=== PATIENT | female | born 1935 | race Caucasian/White ===

== ENCOUNTER 2018-02-13 23:27 | Inpatient (IN) ==
[2018-02-13] MEDS ORDERED: Sodium Chlor 0.9% Inj 500 ML IV.SIG SCH (23:45)
[2018-02-13] MEDS ORDERED: Labetalol HCl Inj 100 MG/20 ML Vial IV.PUSH ONE (23:58)
[2018-02-14 00:55] LABS: Baso % (Auto) 0.2 % (0.0-2.0); Eos # (Auto) 0.2 th/mm3 (0.0-0.4); Eos % (Auto) 1.1 % (0.0-4.0); Hematocrit 40.4 % (35.0-46.0); Hemoglobin 13.9 gm/dL (11.6-15.3); Lymph # (Auto) 1.8 th/mm3 (1.0-4.8); Lymph % (Auto) 13.1 % (9.0-44.0); Mean Corpuscular HGB Conc 34.4 % (32.0-36.0); Mean Corpuscular Hemoglobin 31.9 pg (27.0-34.0); Mean Corpuscular Volume 92.9 fL (80.0-100.0); Mean Platelet Volume 10.1 fL (7.0-11.0); Mono # (Auto) 1.2 th/mm3 (0.0-0.9); Mono % (Auto) 8.6 % (0.0-8.0); Neut # (Auto) 10.8 th/mm3 (1.8-7.7); Platelet Count 237 th/mm3 (150-450); Red Blood Count 4.35 mil/mm3 (4.00-5.30); Red Cell Distribution Width 13.4 % (11.6-17.2); White Blood Count 14.1 th/mm3 (4.0-11.0)
[2018-02-14 01:05] LABS: Albumin 3.6 g/dL (3.4-5.0); Anion Gap 10 meq/L (5-15); Aspartate Aminotransferase 15 U/L (15-37); Blood Urea Nitrogen 18 mg/dL (7-18); Calcium 8.9 mg/dL (8.5-10.1); Carbon Dioxide 23.9 meq/L (21.0-32.0); Chloride 105 meq/L (98-107); Glomerular Filtration Rate 34 mL/min (>89); Glucose,Random 191 mg/dL (74-106); Potassium 3.7 meq/L (3.5-5.1); Sodium 139 meq/L (136-145)
[2018-02-14 01:06] LABS: Alanine Aminotransferase 18 U/L (10-53)
[2018-02-14 01:16] LABS: Alkaline Phosphatase 85 U/L (45-117); Total Protein 7.6 g/dL (6.4-8.2)
[2018-02-14 02:47] LABS: Bilirubin,Urine Negative (Negative); Clarity,Urine Hazy (Clear); Color,Urine Yellow (Yellw/Straw); Glucose,Urine (UA) Negative (Negative); Hyaline Casts,Urine 4 /lpf (0-3); Leukocyte Esterase,Urine Negative (Negative); Nitrite,Urine Negative (Negative); Specific Gravity,Urine 1.012 (1.002-1.035); Squamous Epithelial Cell,Urine 1 /hpf (0-5)
[2018-02-14] MEDS ORDERED: Metoprolol Tartrate 50 MG Tablet PO ONE (02:50)
--- NOTE | 2018-02-14 03:11 | ED ---
HPI General Chief Complaint: Psychiatric Symptoms Stated Complaint: Psych Eval-OBPD Time Seen by Provider: 02/13/18 23:49 Source: EMS Mode of arrival: EMS Limitations: other (Dementia) History of Present Illness HPI Narrative: Came to the emergency room brought by EMS under Antony act. Her daughter called 911 since patient wanted to go to the house across the street to them saying that she wants to go to [place]. Patient is from [facility] and has come to live with her daughter 1 week ago. She does have history of dementia. Because of her behavior daughter called 911. Patient was hypotensive and tachycardic upon arrival but was trying to answer questions. She does have history of hypertension but could not tell me the name of the medication she is on. She did not appear to be in any distress. Patient was complaining of some lower back pain but said she had surgery there many years ago for lumbar fusion and does get pain off and on on that location. No history of alcohol consumption. Onset (ago): hour(s) Related Data Previous Rx's Medication Instructions Recorded metoprolol tartrate 12.5 mg PO BID #30 tab 02/16/18 amlodipine [Norvasc] 5 mg PO DAILY #30 tab 02/17/18 Allergies Allergy/AdvReac Type Severity Reaction Status Date / Time No Known Allergies Allergy Unverified 02/13/18 23:58 Review of Systems ROS Unobtainable ROS Unobtainable: unobtainable due to mental condition (Dementia) [facility] Medical History Medical History Medical history unknown (Acute) Surgical history unknown (Acute) Social History Social History Substance History: No History of Abuse Second Hand Smoke Exposure: No Smoking Status: Never smoker How Often Do You Have a Drink Containing Alcohol: Monthly or less Recent Travel in [facility] within the Last 8 Weeks: No Recent Out of Country Travel within the Last 8 Weeks: No Immunization History Tetanus Immunization: Unable to Assess Exam Narrative Exam Narrative: GENERAL: Awake, confused, elderly, dementia, no obvious distress SKIN: Focused skin assessment warm/dry. HEAD: Atraumatic. Normocephalic. EYES: Pupils equal and round. No scleral icterus. No injection or drainage. ENT: No nasal bleeding or discharge. Mucous membranes pink and moist. NECK: Trachea midline. No JVD. CARDIOVASCULAR: Regular rate and rhythm. No murmur appreciated. RESPIRATORY: No accessory muscle use. Clear to auscultation. Breath sounds equal bilaterally. GASTROINTESTINAL: Abdomen soft, non-tender, nondistended. Hepatic and splenic margins not palpable. MUSCULOSKELETAL: No obvious deformities. No clubbing. No cyanosis. No edema. NEUROLOGICAL: Awake and confused. Dementia. No obvious cranial nerve deficits. Motor grossly within normal limits. Normal speech. PSYCHIATRIC: Appropriate mood and affect; insight and judgment normal. Course Initial Documented Vital Signs Temperature 98.5 F 02/13/18 23:41 Pulse Rate 123 H 02/13/18 23:41 Respiratory Rate 17 02/13/18 23:41 Blood Pressure 240/108 H 02/13/18 23:41 Pulse Oximetry 95 02/13/18 23:41 Last Documented Vital Signs Temperature 98.1 F 02/17/18 05:52 Pulse Rate 79 02/17/18 05:52 Respiratory Rate 18 02/17/18 05:52 Blood Pressure 146/70 H 02/17/18 11:44 Pulse Oximetry 95 02/17/18 05:52 Medical Decision Making MDM Narrative Medical decision making narrative: 3 AM patient has been medically cleared based on the psych labs that was evaluated by me. White blood cell count is slightly elevated but differential appears to be within acceptable limits. I do not have an explanation for the elevated white blood cell count but the patient has been afebrile. She was given 20 mg of Lopressor which brought the heart rate down and the blood pressure currently was 170s. I have given her p.o. Lopressor as well. She is medically cleared and would require psych screen. Medical Screen Exam Complete: Yes Emergency Medical Condition: Yes Lab Data Result diagrams: 02/17/18 10:03 02/17/18 10:03 Lab Results 02/14/18 02/14/18 02/14/18 Range/Units 00:45 00:45 02:28 WBC 14.1 H (4.0-11.0) th/mm3 RBC 4.35 (4.00-5.30) mil/mm3 Hgb 13.9 (11.6-15.3) gm/dL Hct 40.4 (35.0-46.0) % MCV 92.9 (80.0-100.0) fL MCH 31.9 (27.0-34.0) pg MCHC 34.4 (32.0-36.0) % RDW 13.4 (11.6-17.2) % Plt Count 237 (150-450) th/mm3 MPV 10.1 (7.0-11.0) fL Neut % (Auto) 77.0 H (16.0-70.0) % Lymph % (Auto) 13.1 (9.0-44.0) % [place] % (Auto) 8.6 H (0.0-8.0) % Eos % (Auto) 1.1 (0.0-4.0) % Baso % (Auto) 0.2 (0.0-2.0) % Neut # (Auto) 10.8 H (1.8-7.7) th/mm3 Lymph # (Auto) 1.8 (1.0-4.8) th/mm3 [place] # (Auto) 1.2 H (0.0-0.9) th/mm3 Eos # (Auto) 0.2 (0.0-0.4) th/mm3 Baso # (Auto) 0.0 (0.0-0.2) th/mm3 WBC Differential . Differential Comment Auto diff final Sodium 139 (136-145) meq/L Potassium 3.7 (3.5-5.1) meq/L Chloride 105 (98-107) meq/L Carbon Dioxide 23.9 (21.0-32.0) meq/L Anion Gap 10 (5-15) meq/L BUN 18 (7-18) mg/dL Creatinine 1.45 H (0.50-1.00) mg/dL Estimated GFR 34 L (>89) mL/min Random Glucose 191 H (74-106) mg/dL Hemoglobin A1c (4.3-6.0) % Calcium 8.9 (8.5-10.1) mg/dL Total Bilirubin 0.3 (0.2-1.0) mg/dL AST 15 (15-37) U/L ALT 18 (10-53) U/L Alkaline Phosphatase 85 (45-117) U/L Troponin I Less than 0.02 L (0.02-0.05) ng/mL Total Protein 7.6 (6.4-8.2) g/dL Albumin 3.6 (3.4-5.0) g/dL Triglycerides (42-150) mg/dL Cholesterol (120-200) mg/dL LDL Cholesterol, Calc (0-99) mg/dL HDL Cholesterol (40.0-60.0) mg/dL Cholesterol/HDL Ratio Ratio TSH 2.720 (0.358-3.740) uIU/mL Urine Color Yellow (Yellw/Straw) Urine Clarity Hazy H (Clear) Urine pH 5.0 (5.0-8.5) Ur Specific [place] 1.012 (1.002-1.035) Urine Protein Negative (Neg-Trace) mg/dL Urine Glucose (UA) Negative (Negative) mg/dL Urine Ketones Negative (Negative) mg/dL Urine Occult Blood Negative (Negative) Urine Nitrate Negative (Negative) Urine Bilirubin Negative (Negative) Urine Urobilinogen Less than 2 (Less than 2) mg/dL Ur Leukocyte Esterase Negative (Negative) Ur Squamous Epith Cells 1 (0-5) /hpf Hyaline Casts 4 (0-3) /lpf Granular Casts 4 (None) /lpf Micro UA Comment Culture not ind Ur Microscopic Review Not Reportable Urine Culture Comments Culture not ind Serum Alcohol Less than 3 (0-5) mg/dL 02/15/18 02/15/18 02/17/18 Range/Units 06:19 06:19 10:03 WBC 6.2 (4.0-11.0) th/mm3 RBC 3.86 L (4.00-5.30) mil/mm3 Hgb 12.1 (11.6-15.3) gm/dL Hct 35.5 (35.0-46.0) % MCV 92.1 (80.0-100.0) fL MCH 31.5 (27.0-34.0) pg MCHC 34.2 (32.0-36.0) % RDW 13.5 (11.6-17.2) % Plt Count 240 (150-450) th/mm3 MPV 10.0 (7.0-11.0) fL Neut % (Auto) (16.0-70.0) % Lymph % (Auto) (9.0-44.0) % [place] % (Auto) (0.0-8.0) % Eos % (Auto) (0.0-4.0) % Baso % (Auto) (0.0-2.0) % Neut # (Auto) (1.8-7.7) th/mm3 Lymph # (Auto) (1.0-4.8) th/mm3 [place] # (Auto) (0.0-0.9) th/mm3 Eos # (Auto) (0.0-0.4) th/mm3 Baso # (Auto) (0.0-0.2) th/mm3 WBC Differential Differential Comment Sodium 142 (136-145) meq/L Potassium 3.8 (3.5-5.1) meq/L Chloride 109 H (98-107) meq/L Carbon Dioxide 25.7 (21.0-32.0) meq/L Anion Gap 7 (5-15) meq/L BUN 14 (7-18) mg/dL Creatinine 0.85 (0.50-1.00) mg/dL Estimated GFR 64 L (>89) mL/min Random Glucose 103 (74-106) mg/dL Hemoglobin A1c 5.6 (4.3-6.0) % Calcium 8.5 (8.5-10.1) mg/dL Total Bilirubin (0.2-1.0) mg/dL AST (15-37) U/L ALT (10-53) U/L Alkaline Phosphatase (45-117) U/L Troponin I (0.02-0.05) ng/mL Total Protein (6.4-8.2) g/dL Albumin (3.4-5.0) g/dL Triglycerides 102 (42-150) mg/dL Cholesterol 132 (120-200) mg/dL LDL Cholesterol, Calc 76 (0-99) mg/dL HDL Cholesterol 35.7 L (40.0-60.0) mg/dL Cholesterol/HDL Ratio 3.69 Ratio TSH (0.358-3.740) uIU/mL Urine Color (Yellw/Straw) Urine Clarity (Clear) Urine pH (5.0-8.5) Ur Specific [place] (1.002-1.035) Urine Protein (Neg-Trace) mg/dL Urine Glucose (UA) (Negative) mg/dL Urine Ketones (Negative) mg/dL Urine Occult Blood (Negative) Urine Nitrate (Negative) Urine Bilirubin (Negative) Urine Urobilinogen (Less than 2) mg/dL Ur Leukocyte Esterase (Negative) Ur Squamous Epith Cells (0-5) /hpf Hyaline Casts (0-3) /lpf Granular Casts (None) /lpf Micro UA Comment Ur Microscopic Review Urine Culture Comments Serum Alcohol (0-5) mg/dL 02/17/18 Range/Units 10:03 WBC (4.0-11.0) th/mm3 RBC (4.00-5.30) mil/mm3 Hgb (11.6-15.3) gm/dL Hct (35.0-46.0) % MCV (80.0-100.0) fL MCH (27.0-34.0) pg MCHC (32.0-36.0) % RDW (11.6-17.2) % Plt Count (150-450) th/mm3 MPV (7.0-11.0) fL Neut % (Auto) (16.0-70.0) % Lymph % (Auto) (9.0-44.0) % [place] % (Auto) (0.0-8.0) % Eos % (Auto) (0.0-4.0) % Baso % (Auto) (0.0-2.0) % Neut # (Auto) (1.8-7.7) th/mm3 Lymph # (Auto) (1.0-4.8) th/mm3 [place] # (Auto) (0.0-0.9) th/mm3 Eos # (Auto) (0.0-0.4) th/mm3 Baso # (Auto) (0.0-0.2) th/mm3 WBC Differential Differential Comment Sodium 143 (136-145) meq/L Potassium 3.8 (3.5-5.1) meq/L Chloride 108 H (98-107) meq/L Carbon Dioxide 27.1 (21.0-32.0) meq/L Anion Gap 8 (5-15) meq/L BUN 17 (7-18) mg/dL Creatinine 0.99 (0.50-1.00) mg/dL Estimated GFR 53 L (>89) mL/min Random Glucose 113 H (74-106) mg/dL Hemoglobin A1c (4.3-6.0) % Calcium 8.6 (8.5-10.1) mg/dL Total Bilirubin (0.2-1.0) mg/dL AST (15-37) U/L ALT (10-53) U/L Alkaline Phosphatase (45-117) U/L Troponin I (0.02-0.05) ng/mL Total Protein (6.4-8.2) g/dL Albumin (3.4-5.0) g/dL Triglycerides (42-150) mg/dL Cholesterol (120-200) mg/dL LDL Cholesterol, Calc (0-99) mg/dL HDL Cholesterol (40.0-60.0) mg/dL Cholesterol/HDL Ratio Ratio TSH (0.358-3.740) uIU/mL Urine Color (Yellw/Straw) Urine Clarity (Clear) Urine pH (5.0-8.5) Ur Specific [place] (1.002-1.035) Urine Protein (Neg-Trace) mg/dL Urine Glucose (UA) (Negative) mg/dL Urine Ketones (Negative) mg/dL Urine Occult Blood (Negative) Urine Nitrate (Negative) Urine Bilirubin (Negative) Urine Urobilinogen (Less than 2) mg/dL Ur Leukocyte Esterase (Negative) Ur Squamous Epith Cells (0-5) /hpf Hyaline Casts (0-3) /lpf Granular Casts (None) /lpf Micro UA Comment Ur Microscopic Review Urine Culture Comments Serum Alcohol (0-5) mg/dL ECG Data Attestation: I personally reviewed and interpreted this ECG as follows: Interpretation: Twelve-lead EKG is reviewed by me. Normal sinus rhythm, normal axis, tachycardia hernia, nonspecific ST-T wave changes. Discharge Plan Discharge Disposition Patient Disposition: 01 Discharge Home Discharge Condition Condition: Fair Discharge Order Discharge Orders: Discharge Order (Routine); Ordered 02/16/18 Ordered By: Benjamin Malloy Discharge Details Anticipated Discharge Date: 02/17/18 Physicians Team ED Provider: Glenn Lemons Primary Care Provider: UNKNOWN, Attending Provider: Benjamin Malloy Other Providers: Utilizer,[facility] ; Shanice Penn Discharge Interventions Interventions: ED Discharge Assessment Last Done: 02/14/18 13:36 Vital Signs Last Done: 02/14/18 09:12 Status ED Status: Left Department Discharge Information Discharge Date/Time: 02/14/18 13:37
[2018-02-14] MEDS ORDERED: Haloperidol Inj 5 MG/ML Ampul IM ONE (06:41)
[2018-02-14] MEDS ORDERED: Aluminum/Magnesium/Simethacone Susp 30 ML UDC PO PRN (12:26)
[2018-02-14] MEDS ORDERED: Bisacodyl 10 MG Supp RECTAL PRN (12:26)
--- NOTE | 2018-02-14 13:57 | ECG ---
Date Performed: 02/13/2018 Time Performed: 23:48:33 PTAGE: 83 years EKG: SINUS TACHYCARDIA LEFT VENTRICULAR HYPERTROPHY AND ST-T CHANGE ABNORMAL ECG NO PREVIOUS TRACING DOCTOR: Rui Ramon Interpretating Date/Time 02/14/2018 13:56:38
[2018-02-14] MEDS: Senna/Docusate Sodium 8.6/50 MG Tablet PO SCH (21:16)
[2018-02-15 07:47] LABS: Calcium 8.5 mg/dL (8.5-10.1); Carbon Dioxide 25.7 meq/L (21.0-32.0); Potassium 3.8 meq/L (3.5-5.1)
[2018-02-15 07:54] LABS: Chol/HDL Ratio 3.69 Ratio; HDL Cholesterol 35.7 mg/dL (40.0-60.0)
[2018-02-15] MEDS: Senna/Docusate Sodium 8.6/50 MG Tablet PO SCH ×2 (09:56→21:25)
[2018-02-15] MEDS ORDERED: Aluminum/Magnesium/Simethacone Susp 30 ML UDC PO PRN (09:58)
[2018-02-15] MEDS ORDERED: Acetaminophen 325 MG Tablet PO PRN (09:58)
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
[2018-02-15 17:34] LABS: Hemoglobin A1c 5.6 % (4.3-6.0)
--- NOTE | 2018-02-16 07:39 | P.CON ---
[facility] of Present Illness [facility] Consult date: 02/16/18 Requesting Physician: Benjamin Malloy Reason for Consult: Hypertension Primary Care Provider: UNKNOWN Chief Complaint: confusion History of Present Illness: patient is [facility] 83-year-old female who is admitted under psychiatry services apparently for confusion. History mainly obtained from review of records. Patient is pleasant awake alert but pleasantly confused. She states that she is 43 years old and she states that she drove down from [place] to live down here by herself. She states she has history of hypertension recently diagnosed. She does remember that she did have back surgery spinal fusion "sometime ago. When asked how she why she came years states "I just came here to get warm". On review of records apparently she was Antony acted by [employer] on February 13 with history of dementia[facility]. Review BP readings past few days therefore elevated readings of 193/76, 217/97, occasional tchycardia previously. She did get a one-time dose of clonidine. Currently blood pressure is 154/72 heart rate of 76. Patient denies any chest pain shortness of breath palpitations. There are no home meds listed. Currently patient is on Atarax 50 mg every 6, lactulose as needed senna twice daily, Review of Systems Patient denies any fever chest pain or shortness of breath, Denies any difficulty swallowing Denies any nausea vomiting diarrhea No leg swelling PMFSH - History History Provided By: Patient, Family Member - Medical / Surgical Hx Neg / Unobtainable Medical Problems Denied: Yes - Medical History Medical History: Medical History (Last Reviewed 02/15/18 @ 11:15 by Benjamin Malloy MD) Surgical history unknown (Acute) Medical history unknown - Tobacco History Second Hand Smoke Exposure: No Smoking Status: Never smoker - Alcohol History How Often Do You Have a Drink Containing Alcohol: Monthly or less - Substance Use History Substance History: No History of Abuse - Travel History Recent Travel in the [facility] Within the Last 8 Weeks: No Recent Travel Out of the Country Within the Last 8 Weeks: No - Immunization History Tetanus Immunization: Unsure Medications and Allergies Active Medications: Active Medications Acetaminophen (Tylenol) 650 mg PO Q4H PRN PRN Reason: Pain 1-5 or Temp >101F Al Hydrox/Mg Hydrox/Simethicone (Mag-Al Plus Susp Liq) 30 ml PO Q6H PRN PRN Reason: DYSPEPSIA Al Hydroxide/Mg Hydroxide (Milk Of Magnesia Liq) 30 ml PO Q12H PRN PRN Reason: Mild Constipation Bisacodyl (Dulcolax Supp) 10 mg RECTAL DAILY PRN PRN Reason: SEVERE CONSITIPATION Clonidine HCl (Catapres) 0.1 mg PO Q8H PRN PRN Reason: SBP>180 OR DBP> 100 Diphenhydramine HCl (Benadryl) 50 mg PO HS PRN PRN Reason: INSOMNIA Hydroxyzine HCl (Atarax) 50 mg PO Q6H PRN PRN Reason: ANXIETY Sodium Chloride (Ns Inj) 500 mls @ 0 mls/hr IV.SIG BOLUS PAT Last Infusion: 02/14/18 01:46 Dose: Infused Lactulose (Lactulose Liq) 30 ml PO DAILY PRN PRN Reason: SEVERE CONSITIPATION Senna/Docusate Sodium (Richa-Colace) 1 tab PO BID PAT Last Admin: 02/15/18 21:25 Dose: Not Given Sennosides (Senokot) 17.2 mg PO Q12H PRN PRN Reason: Moderate Constipation Allergies Allergy/AdvReac Type Severity Reaction Status Date / Time No Known Allergies Allergy Unverified 02/13/18 23:58 Physical Exam Vital signs: Vital Signs 02/15/18 18:30 02/15/18 21:15 02/16/18 05:07 Temperature 98.1 F 97.6 F Pulse Rate 109 H 76 Respiratory Rate 16 15 Blood Pressure 193/76 H 217/97 H 154/72 H Pulse Oximetry 96 Intake & Output 02/15/18 02/16/18 02/16/18 18:59 06:59 18:59 Other: Date of Last Bowel Movement 02/14/18 02/14/18 Narrative: Patient is awake alert oriented to person, thinks she is in [place], speech clear, oriented to person pleasant and cooperative Anicteric sclerae pupils equal Neck supple no nuchal rigidity no bruit Chest lungs clear breath sounds no rales no wheezes Regular rhythm no murmur Abdomen soft nontender good bowel sounds Extremities no edema good peripheral pulses Neurologic exam awake alert oriented to person only pleasantly confused but interactive speech spontaneous Cranial nerves grossly intact Motor 5/5 in all extremities Grossly no sensory deficit Gait steady Assessment and Plan - Plan 83-year-old female admitted for Dementia. - Pleasantly confused on exam. Psychiatry ff Hypertension. SBP readings ranges from 170s- 205 with DBP in the 100s Patient states that she was recently told that she has high blood pressure weeks ago but I do not know how reliable is this patient denies any chest pain or shortness of breath, not on any BP meds at home Twelve-lead EKG shows sinus rhythm no acute ST-T wave changes was tachycardic on admission but now regular rate and rhythm. start on low dose BB Lopressor 12.5 mg po bid - adjust as BP is being monitored Acute kidney injury on initial labs- - pre renal likelly from dehydration poor po from dementia. Resolved Encourage po intake and fluids- - placed nursing orders Monitor labs periodically History of lumbar fusion back surgery. in No acute pain. Leukocytosis on initial labs- no fever, UA negative, lungs clear. monitor. HYperglycemia - on initial labs-likely reactive. . repeat BS good. A1C normal Up and ambulating Code status- NO code Thank you for this consult will follow patient in-house with you
[2018-02-16] MEDS: Senna/Docusate Sodium 8.6/50 MG Tablet PO SCH ×2 (09:04→21:10)
[2018-02-16] MEDS: Metoprolol Tartrate 25 MG Tablet PO SCH ×2 (09:05→21:09)
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
[2018-02-16 18:46] VITALS: RESP 18; O2SAT 95
[2018-02-17 05:58] VITALS: PULSE 79; TEMP 98.1
--- NOTE | 2018-02-17 08:10 | P.PN ---
Subjective Interval history: Follow-up visit for HTN. Nurse does not report any acute events overnight or this morning, patient will be discharged today around noon. Patient is seen and examined sitting up in bed in no acute distress. Denies any fevers, chills, N/V/ D, cough, SOB, headache or dizziness. Physical Exam Vital signs: Vital Signs 02/16/18 18:45 02/17/18 02:48 02/17/18 05:52 Temperature 97.6 F 98.1 F Pulse Rate 100 H 79 Respiratory Rate 18 Blood Pressure 177/76 H 198/89 H 163/78 H Pulse Oximetry 95 95 Intake & Output 02/16/18 02/17/18 02/17/18 18:59 06:59 18:59 Intake Total 360 / 360 240 / 240 Balance 360 / 360 240 / 240 Intake: Oral 360 / 360 240 / 240 Other: # Voids 1 Date of Last Bowel Movement 02/15/18 Narrative: GENERAL: Well nourished, well developed elderly female in no acute distress. SKIN: Warm and dry. HEAD: Atraumatic. Normocephalic. EYES: Pupils equal and round. No scleral icterus. No injection or drainage. ENT: No nasal bleeding or discharge. MMM and pink. NECK: Trachea midline. CARDIOVASCULAR: Regular rate and rhythm. RESPIRATORY: No accessory muscle use. Clear to auscultation. Breath sounds equal bilaterally. GASTROINTESTINAL: Abdomen soft, non-tender, nondistended. +BS. MUSCULOSKELETAL: Extremities without clubbing, cyanosis, or edema. No obvious deformities. NEUROLOGICAL: Awake and alert. No obvious cranial nerve deficits. Motor grossly within normal limits. Normal speech. PSYCHIATRIC: Appropriate mood and affect; insight and judgment normal. Results - Labs CBC & Chem 7: 02/17/18 10:03 02/17/18 10:03 Assessment and Plan - Plan Dementia - Appears to be stable, treatment per psych HTN, chronic 240/108 on admission EKG shows sinus rhythm no acute ST-T wa - BP this a.m still on the high side 182/90, added Norvasc 5mg daily. Recheck BP later in the afternoon 146/70 - Rx for both medications printed. Follow-up with PCP for ongoing monitoring and adjustments. ADY, likely due do mild dehydration - BMP this a.m stable Leukocytosis, likely stress related - Recheck CBC this a.m. stable Medically stable for discharge, will need to follow-up with her PCP. Discussed Condition With: Patient and nurse.
[2018-02-17] MEDS: Metoprolol Tartrate 25 MG Tablet PO SCH (08:44)
[2018-02-17] MEDS: Senna/Docusate Sodium 8.6/50 MG Tablet PO SCH (08:45)
--- NOTE | 2018-02-17 08:45 | P.TTN ---
- Patient Problems Problems: 1. Discharge planning 2. Medication compliance 3. Knowledge deficit 4. Lack of coping skills - Progress Toward Goals Provider Present: Dr. Leno Malloy Provider Input: 02/16/2018; patient med adjustment; family meeting schedule to discuss placement and appropriate dc Nurse(s) Present: RN Nurse Input: 02/16/2018; per RN patient is pleasant no behavior compliant with required prompting and encouragement with daily life needs Psychiatric Counselors Present: Stephanie Dueñas [facility] Psychiatric Therapist Input: 02/16/2018; Counselor will prepare dc package to [facility] per family request, to ensure appropriate dc planning. Patient will be seen by [facility] medical providers Group Spec/RT/OT/UGALDE Present: Magnus Do OT Group Spec/RT/OT/UGALDE Input: 02/16/18; per OT patient has been unable to praticipate with activities - Documentation Teaching Recipient: Patient
[2018-02-17] MEDS ORDERED: amLODIPine 5 MG Tablet PO SCH (09:00)
[2018-02-17 11:08] LABS: Hematocrit 35.5 % (35.0-46.0); Hemoglobin 12.1 gm/dL (11.6-15.3); Mean Corpuscular HGB Conc 34.2 % (32.0-36.0); Mean Corpuscular Hemoglobin 31.5 pg (27.0-34.0); Mean Corpuscular Volume 92.1 fL (80.0-100.0); Platelet Count 240 th/mm3 (150-450); Red Blood Count 3.86 mil/mm3 (4.00-5.30); Red Cell Distribution Width 13.5 % (11.6-17.2); White Blood Count 6.2 th/mm3 (4.0-11.0)
--- NOTE | 2018-02-17 11:18 | P.PNPSY ---
Subjective Chief Complaint: Dementia, HTN Remarks: Ms. Bhandari is found awake, lying in bed, in her room, dressed in hospital gown/pajamas. She is pleasant, alert, cooperative, Oriented x4, and describes her mood as "good". She is still worried about her dog "Clarice". Immediate Memory appears impaired as she forgot who I was when I came back to room 10min after initial visit. Denies SI/HI, auditory/visual/tactile hallucinations, delusions, IOR. She is set to be discharged today but has not yet been cleared by medical due to Elevated BP readings. BP at 0245a was 198/89, Clonidine 0.1mg was given. Re-check at 0552a was 163/78. Norvasc 5mg and Metoprolol 12.5mg was given at 0845a. Endorses physical weakness. Denies any MCDANIEL, Lightheadedness, LOC , Vision Changes, Chest Pain, SOB, Arm/Jaw Claudication, N/V, Abdominal Pain, Dysuria, or Changes in Defecation. Pt appears to be in no acute distress and has good color. Cardiac Auscultation reveals Normal S1/S2, RRR, no murmurs/rubs/ gallops, no carotid bruits, Carotid Pulses intact 2+ bilaterally, Radial Pulses intact 2+ bilaterally, Pulses are regularly regular. Will report findings to attending Dr. Malloy and round with him this afternoon on patient. Continue current treatment plan. Re-check BP within next 2hrs. Discharge Packet in chart. Review of Systems All other systems reviewed negative except as stated in HPI Constitutional: Reports weakness Eyes: Denies blind spots, Denies blurry vision, Denies bulging eyes, Denies change in vision, Denies double vision, Denies discharge, Denies dry eyes, Denies floaters, Denies irritation, Denies itchy eyes, Denies loss of vision, Denies pain, Denies requires corrective lenses, Denies sensitivity to light, Denies other Cardiovascular: Denies chest pain, Denies chest pain at rest, Denies chest pain with activity, Denies excessive sweating, Denies fainting, Denies fast heart rate, Denies foot swelling, Denies generalized swelling, Denies irregular heart rhythm, Denies leg pain with activity, Denies leg sores, Denies leg swelling, Denies lightheadedness, Denies radiating jaw, neck or arm pain, Denies rapid, pounding, or irregular heartbeat, Denies shortness of breath, Denies shortness of breath with activity, Denies shortness of breath when lying down, Denies shortness of breath causing sudden awakening, Denies slow heart rate, Denies other Respiratory: Denies change in phlegm color, Denies chest congestion, Denies cough, Denies coughing up blood, Denies excessive phlegm production, Denies pain on inspiration, Denies pain with cough, Denies shortness of breath, Denies shortness of breath with activity, Denies snoring, Denies stridor, Denies wheezing, Denies other Gastrointestinal: Denies abdominal pain, Denies belching, Denies black, tarry stools, Denies bloating, Denies bright, red blood in stools, Denies change in bowel habits, Denies constant urge to pass stool, Denies change in stools, Denies coffee ground vomit, Denies constipation, Denies cramping, Denies difficulty swallowing, Denies excessive passing of gas, Denies feeling full early, Denies heartburn, Denies incontinent of stools, Denies loose stools, Denies nausea, Denies pain with swallowing, Denies vomiting, Denies vomiting blood, Denies other Musculoskeletal: Reports muscle weakness Neurologic: Reports weakness Psychiatric: Reports anxiety (only regarding the status of her dog "Clarice") Mental Status Examination Appearance: Appropriate (Awake, lying in bed in room, dressed in hospital gown/ pajamas) Consciousness: Alert (good eye contact) Orientation: x4 (Accurately answered Person/Place/Time/Situation questions with minimal prompting) Motor Activity: Normal gait Speech: Unremarkable Language: Adequate Fund of Knowledge: Adequate Attention and Concentration: Adequate (good eye contact) Memory: Impaired (Patient forgot my name and said "you look like one of my doctors" when i came back to room roughly 10mins after initial visit) Mood: Appropriate, Good ("Good") Affect: Appropriate, Euthymic Thought Process & Associations: Intact, Logical, Linear Thought Content: Appropriate Hallucination Type: None Delusion Type: None Suicidal Ideation: No Suicidal Plan: No Suicidal Intention: No Homicidal Ideation: No Homicidal Plan: No Homicidal Intention: No Insight: Fair Judgment: Adequate Assessment and Plan - Assessment (1) Alzheimer's disease with late onset Code(s): G30.1 - Alzheimer's disease with late onset; F02.80 - Dementia in other diseases classified elsewhere without behavioral disturbance Status: Acute (2) Dementia in other diseases classified elsewhere with behavioral disturbance Code(s): F02.81 - Dementia in other diseases classified elsewhere with behavioral disturbance Status: Acute - Plan Plan: Upon my psychiatric evaluation, Ms. Bhandari is pleasant, cooperative, alert, and oriented x 4 with minimal prompting. She is able to recount her husbands deaths, her current situation (moving here with to be with her daughter), and personal history. However, her immediate memory remains impaired as she forgot who I was within roughly 10mins of initial interview when I returned for cardiac auscultation. Will report findings to attending Dr. Malloy and round with him this afternoon on patient. Continue current treatment plan. Re-check BP within next 2hrs and reassess at that time. Contact Medical Team if BP remains elevated, Chest Pain/SOB/Claudication, or if Pt decompensates. Proceed with Discharge Plan pending medical clearance. Discharge Packet in chart. Request Healthcare Surrogate/Guardian Advocate?: Yes
[2018-02-17 11:33] LABS: Calcium 8.6 mg/dL (8.5-10.1); Carbon Dioxide 27.1 meq/L (21.0-32.0); Potassium 3.8 meq/L (3.5-5.1)
[2018-02-17 11:45] VITALS: BP 146/70
== END 2018-02-17 13:15 ==
LOC: NEPC 23:27 → H250 02-14 12:26 → H4EA 02-15 22:01
PROVIDERS: ADMIT Psychiatry & Neurology Psychiatry; ATTEND Psychiatry & Neurology Psychiatry